=== PATIENT | male | born 1970 | race Caucasian/White ===

== ENCOUNTER 2017-04-30 12:54 | Emergency (ER) | payer OTHER ==
[2017-04-30 13:02] VITALS: BP 132/86; PULSE 68; RESP 16; TEMP 98.8
--- NOTE | 2017-04-30 13:12 | ED ---
General Adult HPI - General Chief complaint: Extremity Injury, Upper Stated complaint: IHS/ Left foor injury Time Seen by Provider: 04/30/17 13:07 Source: patient, RN notes reviewed Mode of arrival: ambulatory Limitations: no limitations - History of Present Illness Initial comments: Patient 46-year-old male who presents emergency room today with a chief complaint of injury to the left foot that occurred just earlier this morning while coming down a ladder. Patient does admit that he missed a step and his left foot came down a little harder on one of the ladder rungs and he believes he twisted it. He does admit that he is experiencing some pain over the fifth metatarsal. He denies any other complaints or associated symptoms. Patient denies any recent fever, chills, shortness of breath, chest pain, back pain, abdominal pain, nausea or vomiting, numbness or tingling, dysuria or hematuria, constipation or diarrhea, headaches or visual changes, or any other complaints. - Related Data Previous Rx's Medication Instructions Recorded Ibuprofen [Motrin] 600 mg PO Q6HR PRN #40 day 04/30/17 Allergies Allergy/AdvReac Type Severity Reaction Status Date / Time No Known Allergies Allergy Verified 04/30/17 13:02 Review of Systems ROS Statement: Those systems with pertinent positive or pertinent negative responses have been documented in the HPI. ROS Other: All systems not noted in ROS Statement are negative. Past Medical History Past Medical History: Hypertension History of Any Multi-Drug Resistant Organisms: None Reported Past Surgical History: No Surgical Hx Reported Past Psychological History: No Psychological Hx Reported Smoking Status: Current every day smoker Past Alcohol Use History: Occasional Past Drug Use History: None Reported General Exam - General Exam Comments Initial Comments: General: The patient is awake and alert, in no distress, and does not appear acutely ill. Neck: The neck is supple, there is no tenderness or JVD. Cardiovascular: There is a regular rate and rhythm. No murmur, rub or gallop is appreciated. Respiratory: Lungs are clear to auscultation, respirations are non-labored, breath sounds are equal. No wheezes, stridor, rales, or rhonchi. Musculoskeletal: Patient does have some mild swelling redness to the lateral aspect of the fifth metatarsal. Mild tenderness on exam. No tenderness to the left knee, left ankle return to the left toes. Sensations are intact with pulses equal bilaterally 2+. Strength is 5/5. Neurological: A&O x 3. CN II-XII intact, There are no obvious motor or sensory deficits. Coordination appears grossly intact. Speech is normal. Skin: Skin is warm and dry and no rashes or lesions are noted. Psychiatric: Normal mood and affect. Limitations: no limitations Course Vital Signs 04/30/17 12:59 Temperature 98.8 F Pulse Rate 68 Respiratory 16 Rate Blood Pressure 132/86 O2 Sat by Pulse 97 Oximetry Medical Decision Making - Medical Decision Making X-ray reviewed does show a nondisplaced fracture of the proximal fifth metatarsal. Results were discussed with the patient. He is been splinted in a short leg posterior OCL splint. Neurovascular rechecked and intact. Patient advised to follow-up with orthopedics over the next 1-2 days. Advised to use crutches with nonweightbearing. Disposition Clinical Impression: Foot fracture, left Disposition: HOME SELF-CARE Condition: Good Instructions: Foot Fracture in Adults (ED) Additional Instructions: Please use crutches with nonweightbearing as discussed until follow-up with orthopedics. Please see splinted in place until follow-up appointment. Please continue to ice elevate and use 4 times a day for 20 minutes at a time. Please use Tylenol/ibuprofen for pain as needed. Please return to emergency room for any other concerns. Prescriptions: Ibuprofen [Motrin] 600 mg PO Q6HR PRN #40 day PRN Reason: Pain Referrals: None,Stated [Primary Care Provider] - 1-2 days Time of Disposition: 13:45
--- NOTE | 2017-04-30 13:31 | XR ---
EXAMINATION TYPE: XR foot complete LT DATE OF EXAM: 04/30/2017 COMPARISON: NONE HISTORY: Foot pain TECHNIQUE: 3 views FINDINGS: There is a nondisplaced transverse fracture across the base of the fifth metatarsal. There is no dislocation. Joint spaces are normal. IMPRESSION: Acute proximal fifth metatarsal fracture.
== END 2017-04-30 13:50 | disposition home or self-care (01) ==
LOC: EC 12:54
DX: S92.355A Nondisplaced fracture of fifth metatarsal bone, left foot, initial encounter for closed fracture (principal); F17.200 Nicotine dependence, unspecified, uncomplicated; X50.1XXA Overexertion from prolonged static or awkward postures, initial encounter; Y99.0 Civilian activity done for income or pay; Y92.69 Other specified industrial and construction area as the place of occurrence of the external cause
CPT/HCPCS: 29515; 99283